=== PATIENT | female | born 1965 | race Caucasian/White ===

== ENCOUNTER 2016-12-26 14:14 | Outpatient (CLI) | payer OTHER ==
--- NOTE | 2016-12-30 07:46 | Mammography Report ---
DIGITAL BILATERAL SCREENING MAMMOGRAM: 12/26/2016 CLINICAL HISTORY: A 51-year-old female in for routine screening mammogram. Patient does have a family history of breast cancer. She has an aunt with breast cancer. Patient has no breast surgical history. TECHNIQUE: Craniocaudad and oblique lateral views of each breast were obtained with Hologic Full Field digital mammography. COMPARISON: 08/22/2007, 09/16/2008, 01/28/2010, 06/02/2011, 07/05/2012, 2013, 09/24/2015 FINDINGS: Breast parenchyma consists of extremely dense breasts. Scattered benign-appearing calcifications are noted in the breasts. There are multiple small masses noted distributed in the upper outer quadrant in 12 o' clock position of the right breast and in the central portion of the left breast. Some of these appear more prominent than on preceding exam. Recommend patient return for coned-down compression craniocaudad and oblique lateral views of the breast as well as bilateral breast ultrasound for further evaluation. IMPRESSION: MULTIPLE SMALL BILATERAL BREAST MASSES ARE NOTED IN EACH BREAST. IN THE RIGHT BREAST, THEY RESIDE IN THE UPPER OUTER QUADRANT AND IN THE 12 O' CLOCK POSITION. IN THE LEFT BREAST, THEY RESIDE IN THE CENTRAL PORTION OF THE BREAST. RECOMMEND PATIENT RETURN FOR ADDITIONAL VIEWS OF EACH BREAST AND BILATERAL BREAST ULTRASOUND FOR FURTHER EVALUATION. BIRADS CATEGORY 0 - INCOMPLETE. NEEDS ADDITIONAL IMAGING STUDIES. STANDARD QUALIFYING STATEMENTS 1. This examination was reviewed with the aid of Computer-Aided Detection (CAD). 2. A negative or benign imaging report should not delay biopsy if clinically suspicious findings are present. Consider surgical consultation if warranted. More than 5% of cancers are not identified by imaging. 3. Dense breasts may obscure an underlying neoplasm. :9 JOB #: [id number] EXT JOB #: [id number] [facility]umar
== END 2016-12-26 14:15 | disposition home or self-care (01) ==
LOC: DI.S 14:14
PROVIDERS: ATTEND Nurse Practitioner Family
DX: Z12.31 Encounter for screening mammogram for malignant neoplasm of breast (principal); R92.8 Other abnormal and inconclusive findings on diagnostic imaging of breast
CPT/HCPCS: 77067

== ENCOUNTER 2017-03-06 11:20 | Outpatient (CLI) | payer OTHER ==
--- NOTE | 2017-03-06 15:24 | Mammography Report ---
DIGITAL DIAGNOSTIC BILATERAL MAMMOGRAM: 03/06/2017 CLINICAL INDICATION: Possible bilateral nodules on screening. TECHNIQUE: Bilateral true lateral and spot compression views. COMPARISON: 12/26/2016, 09/24/2015, 07/29/2014, 07/05/2012, 06/02/2011, 01/28/2010, 09/16/2008, 08/22. FINDINGS: The breasts again demonstrate heterogeneously dense fibroglandular parenchyma bilaterally. The densities in question dissipate on additional compression. No underlying nodule or region of arc hitectural distortion is appreciated. Punctate, typically benign calcifications are again noted. IMPRESSION: BENIGN FINDINGS. RECOMMENDATION: ROUTINE ANNUAL SCREENING UNLESS OTHERWISE CLINICALLY INDICATED. BIRADS CATEGORY 2-BENIGN FINDINGS. STANDARD QUALIFYING STATEMENTS 1. This examination was reviewed with the aid of Computer-Aided Detection (CAD). 2. A negative or benign imaging report should not delay biopsy if clinically suspicious findings are present. Consider surgical consultation if warranted. More than 5% of cancers are not identified by i maging. 3. Dense breasts may obscure an underlying neoplasm. JOB #: [id number] EXT JOB #:[id number]
== END 2017-03-06 11:21 | disposition home or self-care (01) ==
LOC: DI 11:20
PROVIDERS: ATTEND Nurse Practitioner Family
DX: N63 Unspecified lump in breast (principal)
CPT/HCPCS: 77066

== ENCOUNTER 2017-03-21 17:19 | Emergency (ER) | payer OTHER ==
[2017-03-21 18:01] LABS: BASOPHILS # (AUTO) 0.1 10^3/uL (0.0-0.1); BASOPHILS % (AUTO) 0.7 %; EOSINOPHILS # (AUTO) 0.6 10^3/uL (0.0-0.7); EOSINOPHILS % (AUTO) 5.8 %; HCT - HEMATOCRIT 41.2 % (37.0-47.0); HGB - HEMOGLOBIN 13.9 g/dL (12.0-16.0); LYMPHOCYTES # (AUTO) 2.1 10^3/uL (1.5-3.5); LYMPHOCYTES % (AUTO) 18.9 %; MEAN CORPUSCULAR HEMOGLOBIN 31.3 pg (27.0-31.0); MEAN CORPUSCULAR HGB CONC 33.8 g/dL (32.0-36.0); MEAN CORPUSCULAR VOLUME 92.5 fL (81.0-99.0); MEAN PLATELET VOLUME 7.9 fL (7.9-10.8); MONOCYTES # (AUTO) 0.8 10^3/uL (0.0-1.0); MONOCYTES % (AUTO) 6.9 %; NEUTROPHILS # (AUTO) 7.5 10^3/uL (1.5-6.6); NEUTROPHILS % (AUTO) 67.7 %; RED BLOOD COUNT 4.45 10^6/uL (4.20-5.40); UNCORRECTED WHITE BLOOD COUNT 11.1 x10^3/uL; WHITE BLOOD COUNT 11.1 x10^3/uL (4.8-10.8)
[2017-03-21 18:13] LABS: ALBUMIN/GLOBULIN RATIO 1.6 (1.0-2.2); BILIRUBIN,TOTAL 0.5 mg/dL (0.2-1.0); CALCIUM 9.5 mg/dL (8.5-10.3); CREATININE 0.9 mg/dL (0.4-1.0); POTASSIUM 3.8 mmol/L (3.5-5.0); TOTAL PROTEIN 7.4 g/dL (6.7-8.2)
--- NOTE | 2017-03-21 18:27 | XRAY Preliminary Report ---
Exam: XR Chest 1 View IMPRESSION: Normal single view chest. [facility] SITE ID: [id number]
--- NOTE | 2017-03-21 18:29 | XRAY Report ---
EXAM: CHEST RADIOGRAPHY EXAM DATE: 03/21/2017 06:08 PM. CLINICAL HISTORY: CHEST PAIN. COMPARISON: None. TECHNIQUE: 1 view. FINDINGS: Lungs/Pleura: No focal opacities evident. No pleural effusion. No pneumothorax. Mediastinum: Within exam limitations, cardiomediastinal contour is normal. Other: No osseous abnormality identified. IMPRESSION: Normal single view chest. [facility] Referring Provider Line: [phone] SITE ID: [id number]
--- NOTE | 2017-03-21 18:33 | ED Physician Documentation ---
PD HPI CHEST PAIN - Stated complaint Stated Complaint: CHEST PX - Chief complaint Chief Complaint: Cardiac - History obtained from History obtained from: Patient, Family - History of Present Illness Timing - onset: Other (Previously healthy 51-year-old woman who for the past 10 days or so has a mild globalheadache. This was followed a couple of days ago by some gradual onset central chest pain that was non-positional and originally nonradiating. It was worse if she takes a deep breath. She thought it was may be reflux and tried some omeprazole without relief. Today for a couple of hours the chest pain was worse and radiated between the shoulder blades. It was not exertional, she lifted weights this morning without an increase in pain. 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 - Present Medications Home Medications: Ambulatory Orders Medication Instructions Recorded Confirmed No Known Home Medications [No 03/21/17 03/21/17 Known Home Medications] - Allergies Allergies/Adverse Reactions: Allergies Allergy/AdvReac Type Severity Reaction Status Date / Time No Known Drug Allergies Allergy Verified 03/21/17 17:28 - Social History Does the pt smoke?: Yes Smoking Status: Current some day smoker Does the pt drink ETOH?: Yes Does the pt have substance abuse?: No - Family History Family history: reports: Other (Father had uncontrolled hypertension and a stroke in his 50s) - Immunizations Immunizations are current?: Yes - POLST Patient has POLST: No PD ED PE NORMAL - Vitals Vital signs reviewed: Yes - General General: Alert and oriented X 3, No acute distress - HEENT HEENT: PERRL, EOMI - Neck Neck: Supple, no meningeal sign, No bony TTP - Cardiac Cardiac: RRR, No murmur - Respiratory Respiratory: No respiratory distress, Clear bilaterally - Abdomen Abdomen: Soft, Non tender - Extremities Extremities: No edema, No calf tenderness / cord - Neuro Neuro: Alert and oriented X 3, Normal speech - Psych Psych: Normal mood, Normal affect Results - Vitals Vitals: Vital Signs - 24 hr 03/21/17 03/21/17 17:26 19:36 Temperature 36.6 C Heart Rate 78 70 Respiratory 18 18 Rate Blood Pressure 166/103 H 138/82 H O2 Saturation 100 99 Oxygen O2 Source Room air - EKG (time done) 1732 Rate: Rate (enter#) (69) Rhythm: NSR [place]: Normal Intervals: Normal [place] QRS: Normal Ischemia: Normal ST segments Computer interpretation: Agree with computer - Labs Labs: Laboratory Tests 03/21/17 03/21/17 03/21/17 17:55 17:55 17:55 WBC 11.1 H RBC 4.45 Hgb 13.9 Hct 41.2 MCV 92.5 MCH 31.3 H MCHC 33.8 RDW 13.0 Plt Count 318 MPV 7.9 Neut # 7.5 H Lymph # 2.1 [place] # 0.8 Eos # 0.6 Baso # 0.1 Absolute Nucleated RBC 0.01 Nucleated RBCs 0.0 Sodium 136 Potassium 3.8 Chloride 100 L Carbon Dioxide 27 Anion Gap 9.0 BUN 24 H Creatinine 0.9 Estimated GFR (MDRD) 66 L Glucose 105 H Calcium 9.5 Total Bilirubin 0.5 AST 19 ALT 33 Alkaline Phosphatase 52 Troponin I < 0.04 Total Protein 7.4 Albumin 4.6 Globulin 2.8 Albumin/Globulin Ratio 1.6 Lipase 24 - Rads (name of study) 1v chest Radiology: EMP read contemporaneously (NAD) Ct Angio chest Radiology: EMP read contemporaneously (neg) PD MEDICAL DECISION MAKING - ED course ED course: 51-year-old woman with chest pain, long-standing duration so the single negative troponin should be predictive especially in light of a completely nonischemic EKG. Pain did radiate between the shoulder blades a dissection was considered and ruled out by CT. Departure - Departure Disposition: 01 Home, Self Care Clinical Impression: Chest pain Qualifiers: Chest pain type: unspecified Qualified Code(s): R07.9 - Chest pain, unspecified Condition: Good Record reviewed to determine appropriate education?: Yes Instructions: ED Chest Pain NonCardiac Comments: Call your doctor to arrange a follow-up appointment, make the next available appointment. In the interim, return anytime if worse or if new symptoms develop. Your blood pressure was elevated today on check into the emergency department. This does not mean that you have hypertension, it is a common phenomenon to come to the emergency department and have elevated blood pressure. I recommend that she see her primary care physician within the week to have it rechecked when you are feeling better. Discharge Date/Time: 03/21/17 20:35
[2017-03-21] MEDS ORDERED: SODIUM CHLORIDE FLUSH 0.9% 10 ML SYRINGE IVP ONE (18:52)
[2017-03-21] MEDS ORDERED: IOPAMIDOL-300 100 ML VIAL IVP ONE (19:27)
[2017-03-21 19:36] VITALS: BP 138/82
--- NOTE | 2017-03-21 20:05 | CT Preliminary Report ---
Exam: CT Chest Angio (AORTA) IMPRESSION: 1. No thoracic aortic aneurysm or dissection. 2. Negative for pulmonary embolism. 3. Clear lungs. [facility] SITE ID: [id number]
--- NOTE | 2017-03-21 20:08 | CT Report ---
EXAM: CT ANGIOGRAM CHEST EXAM DATE: 03/21/2017 07:33 PM. CLINICAL HISTORY: Chest pain. COMPARISON: None. TECHNIQUE: Routine helical imaging was performed through the chest in the arterial phase. IV Contras t: 100 cc Isovue-300. Reconstructions: Coronal 3-D MIP reconstructions.Sagittal and coronal. In accordance with CT protocol optimization, one or more of the following dose reduction techniques w ere utilized for this exam: automated exposure control, adjustment of mA and/or KV based on patient s ize, or use of iterative reconstructive technique. FINDINGS: Pulmonary Arteries: Diagnostic quality: Adequate through the segmental arteries. No evidence for acute or chronic pulmona ry emboli. Thoracic aorta is normal in caliber. No dissection or intramural hematoma. There is negligible athero sclerotic calcified plaque. Lungs/Pleura: There is mild bilateral apical subpleural scarring. No consolidative process. Negative for pulmonary edema and pneumothorax. No pleural effusion. Mediastinum: Normal. No cardiac enlargement or adenopathy. Thoracic Aorta: Unremarkable. Upper Abdomen: Unremarkable. Other: None. IMPRESSION: 1. No thoracic aortic aneurysm or dissection. 2. Negative for pulmonary embolism. 3. Clear lungs. [facility] Referring Provider Line: [phone] SITE ID: [id number]
== END 2017-03-21 20:35 | disposition home or self-care (01) ==
LOC: ED 17:19
DX: R07.9 Chest pain, unspecified (principal); R03.0 Elevated blood-pressure reading, without diagnosis of hypertension; F17.200 Nicotine dependence, unspecified, uncomplicated; Z82.3 Family history of stroke; Z82.49 Family history of ischemic heart disease and other diseases of the circulatory system
CPT/HCPCS: 36415; 71010; 71275; 80053; 83690; 84484; 85025; 93005; 99283; 99284; Q9967

== ENCOUNTER 2017-09-27 13:51 | Outpatient (CLI) | payer OTHER ==
--- NOTE | 2017-09-27 16:27 | XRAY Report ---
THREE VIEW LUMBAR SPINE: 09/27/2017 CLINICAL INDICATION: Back pain. FINDINGS: AP, lateral, coned down views of the lumbar spine demonstrate normal height and alignment of the vertebral bodies. The disk spaces are preserved. Minimal degenerative endplate changes previously noted are stable. No interval fracture or subluxation is seen. The bowel gas pattern is normal. IMPRESSION: MINIMAL DEGENERATIVE ENDPLATE CHANGES, STABLE FROM PREVIOUS. TD: 09/27/2017 16:25
== END 2017-09-27 13:52 | disposition home or self-care (01) ==
LOC: DI.S 13:51
PROVIDERS: ATTEND Nurse Practitioner Family
DX: M54.41 Lumbago with sciatica, right side (principal); M51.36 Other intervertebral disc degeneration, lumbar region
CPT/HCPCS: 72100

== ENCOUNTER 2017-09-29 04:57 | Emergency (ER) | payer OTHER ==
--- NOTE | 2017-09-29 05:23 | ED Physician Documentation ---
PD HPI BACK PAIN - Stated complaint Stated Complaint: BACK PX - Chief complaint Chief Complaint: Back Pain - History obtained from History obtained from: Patient - History of Present Illness Timing - onset: How many weeks ago (2) Timing - details: Gradual onset, Constant, Waxing and waning Pain level max: 10 Pain level now: 10 Location: Lower, Left Quality: Pain, Spasm Associated symptoms: Numbness (LLE). No: Fever, Weakness, Incontinent of urine , Unable to urinate, Incontinent of stool Improves with: Rest Worsened by: Movement Similar symptoms before: No diagnosis Recently seen: Clinic - Additional information Additional information: c/o atraumatic left low back pain x 2 weeks, gradually progressive and radiating down left leg to knee anterior surface associated with intermittent paresthesias of LLE. Evaluated by PMD twice over past two weeks, xrays performed few days ago were nondiagnostic. Presents due to inadequate relief with 5 days 60mg prednisone (finished yesterday), meloxicam, flexeril, vicodin, and amitryptilene. She did have moderate amount of activity the day the pain started (exercise with weights, then lifting heavy objects), although there was no specific incident that triggered back pain. Review of Systems GI: reports: Reviewed and negative Musculoskeletal: reports: Back pain. denies: Neck pain Neurologic: reports: Numbness. 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 - Present Medications Home Medications: Ambulatory Orders Medication Instructions Recorded Confirmed Amitriptyline [Elavil] 1 tab PO BID 09/29/17 09/29/17 Cyclobenzaprine HCl 1 tab PO TID 09/29/17 09/29/17 Hydrocodone/Acetaminophen [Vicodin 1 tab PO QPM 09/29/17 09/29/17 5-300 mg Tablet] diazePAM [Valium] 5 mg PO TID PRN #15 tablet 09/29/17 - Allergies Allergies/Adverse Reactions: Allergies Allergy/AdvReac Type Severity Reaction Status Date / Time No Known Drug Allergies Allergy Verified 09/29/17 05:02 - Social History Does the pt smoke?: Yes Smoking Status: Current every day smoker Does the pt drink ETOH?: Yes Does the pt have substance abuse?: No - Immunizations Immunizations are current?: Yes - POLST Patient has POLST: No PD ED PE NORMAL - Vitals Vital signs reviewed: Yes - General General: Alert and oriented X 3, Well developed/nourished, Other (appears to be in moderate painful distress) - Cardiac Cardiac: RRR, No murmur - Respiratory Respiratory: No respiratory distress, Clear bilaterally - Abdomen Abdomen: Soft, Non tender - Back Back: No CVA TTP, No spinal TTP - Derm Derm: Normal color, Warm and dry, No rash - Extremities Extremities: No edema - Neuro Neuro: Alert and oriented X 3, cattle dipper 2-12 intact, No motor deficit, No sensory deficit, Other (2+/4 bilateral DTR (patellar). LTS intact BLE. 5/5 bilateral plantarflexion. unable to assess straight-leg lift/strength due to worsening pain with this maneuver) Results - Vitals Vitals: Vital Signs - 24 hr 09/29/17 09/29/17 09/29/17 05:02 06:13 06:41 Temperature 36.7 C Heart Rate 80 76 77 Respiratory 20 16 16 Rate Blood Pressure 178/111 H 158/98 H 170/108 H O2 Saturation 100 98 94 Oxygen O2 Source Room air PD MEDICAL DECISION MAKING - ED course Complexity details: considered differential, d/w patient ED course: good relief with IV dilaudid and PO valium, although pain gradually returned while awaiting MRI. She requested PO medication and thus 2 percocet given. However, while on MRI table, she had worsening pain again and thus given another dose (1mg) of IV dilaudid. Case then signed out to Ignacio Kitchen, as my shift ended prior to MRI results available. Signed out at approximately 8 AM Departure - Departure Disposition: 01 Home, Self Care Clinical Impression: Low back pain Condition: Stable Instructions: ED Sciatica Follow-Up: Jorge Meek ARNP [Credentialed Staff Provider] - Prescriptions: diazePAM [Valium] 5 mg PO TID PRN #15 tablet PRN Reason: Spasms Comments: Apply ice pack to your lower back intermittently for the next 3 or 4 days. You can use Valium as prescribed if needed for muscle spasms. You can use pain medication as previously prescribed if needed for pain. Follow up with your primary physician within 1 week. Call to schedule appointment. Return to the emergency department if you develop increasing pain, increasing numbness or weakness, or otherwise worsening symptoms. Discharge Date/Time: 09/29/17 10:41
[2017-09-29] MEDS ORDERED: HYDROmorphone 1 MG/ML SYRINGE IVP STA ×2 (05:51→08:49)
[2017-09-29] MEDS ORDERED: diazePAM 5 MG TABLET PO STA (05:51)
[2017-09-29 06:43] VITALS: BP 170/108
[2017-09-29] MEDS ORDERED: oxyCOD/ACETAMIN 5 MG/325 MG TABLET PO STA (07:51)
--- NOTE | 2017-09-29 09:56 | MRI Preliminary Report ---
Exam: MRI LUMBAR SPINE W/O Impression: 1. There is mild bilateral foraminal space protrusions of the disk producing mild foraminal stenoses at L3-L4. There is no significant central canal stenosis at L3-L4. 2. There is a minimal disk bulge at L4-L5 producing a mild central canal stenosis. 3. 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 Comment: The following findings are so common in adults without low back pain that while we report th eir presence, they must be interpreted with caution and in the context of the clinical situation. (Re marbella Cannon et al, Spine 2001) Prevalence of findings in patients without low back pain: Disk degeneration (any evidence): 92% Disk desiccation/T2 signal loss: 83% Disk height loss: 56% Disk bulge: 64% Disk protrusion: 32% Annular tear/high intensity zone: 38% [facility] SITE ID: [id number]
--- NOTE | 2017-09-29 10:12 | MRI Report ---
EXAM: MRI LUMBAR SPINE WITHOUT CONTRAST EXAM DATE: 09/29/2017 09:15 AM. CLINICAL HISTORY: Low back pain radiating to the left leg for 2 weeks. COMPARISON: None. TECHNIQUE: Multiplanar, multisequence T1-weighted and fluid-sensitive sequences of the lumbar spine f rom T12 to S1 without contrast. Other: None. FINDINGS: There is a mild degree of straightening of the normal lumbar lordosis. There is normal height of the disk spaces. There is minimal desiccation at L2-L3 through L3-L4. The conus terminates at L1-L2 and is normal. There is no significant atrophy of the paraspinal musculature or the psoas musculature. The kidneys a re without evidence of hydronephrosis. The abdominal aorta is of normal caliber. The anterior to posterior dimension of the bony lumbar canal is less than 15 mm consistent with a con genital stenosis. There is fluid intensity within the superficial space of the lower back. L2-L3: There is no significant disk bulge, central or foraminal stenosis. The facets are normal. L3-L4: There are small foraminal space protrusions of the disk producing mild foraminal stenoses. The re is no significant disk bulge or central canal stenosis. The facets are normal. L4-L5: There is a minimal disk bulge producing a mild central canal stenosis. There is mild right and left facet arthropathy. There is mild right and left foraminal stenosis. L5-S1: There is no significant disk bulge, central or foraminal stenosis. The facets are normal. IMPRESSION: 1. There are mild bilateral foraminal space protrusions of the disk producing mild foraminal stenoses at L3-L4. There is no significant central canal stenosis at L3-L4. 2. There is a minimal disk bulge at L4-L5 producing a mild central canal stenosis. 3. 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 Comment: The following findings are so common in adults without low back pain that while we report th eir presence, they must be interpreted with caution and in the context of the clinical situation. (Re marbella Cannon et al, Spine 2001) Prevalence of findings in patients without low back pain: Disk degeneration (any evidence): 92% Disk desiccation/T2 signal loss: 83% Disk height loss: 56% Disk bulge: 64% Disk protrusion: 32% Annular tear/high intensity zone: 38% [facility] Referring Provider Line: [phone] SITE ID: [id number]
--- NOTE | 2017-09-29 10:24 | ED Physician Documentation ---
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 - Present Medications Home Medications: Ambulatory Orders Medication Instructions Recorded Confirmed Amitriptyline [Elavil] 1 tab PO BID 09/29/17 09/29/17 Cyclobenzaprine HCl 1 tab PO TID 09/29/17 09/29/17 Hydrocodone/Acetaminophen [Vicodin 1 tab PO QPM 09/29/17 09/29/17 5-300 mg Tablet] diazePAM [Valium] 5 mg PO TID PRN #15 tablet 09/29/17 - Allergies Allergies/Adverse Reactions: Allergies Allergy/AdvReac Type Severity Reaction Status Date / Time No Known Drug Allergies Allergy Verified 09/29/17 05:02 - Social History Does the pt smoke?: Yes Smoking Status: Current every day smoker Does the pt drink ETOH?: Yes Does the pt have substance abuse?: No - Immunizations Immunizations are current?: Yes - POLST Patient has POLST: No Results - Vitals Vitals: Oxygen O2 Source Room air - Rads (name of study) MRI Lumbar Spine Radiology: Prelim report reviewed, EMP read contemporaneously, See rad report ( There are mild bilateral foraminal space protrusions of the disc producing mild foraminal stenosis at L3-L4. There is no significant central canal stenosis at L3-L4. There is a mild disc bulge at L4-L5 producing a mild central canal stenosis. 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 The MRI reveals mild foraminal stenosis at the levels of L3-4 and L4-5. On reevaluation of the patient, her pain has resolved after administration of pain medication as ordered by Dr. Jimenez. Straight leg raise test is negative bilaterally. I discussed with her the results of the MRI, symptomatic treatment and outpatient follow-up, as well as potentially worrisome signs or symptoms that should prompt reevaluation in the emergency department. Departure - Departure Disposition: 01 Home, Self Care Clinical Impression: Low back pain Qualifiers: Chronicity: acute Back pain laterality: left Sciatica presence: with sciatica Sciatica laterality: sciatica of left side Qualified Code(s): M54.42 - Lumbago with sciatica, left side Condition: Stable Instructions: ED Sciatica Follow-Up: Jorge Meek ARNP [Credentialed Staff Provider] - Prescriptions: diazePAM [Valium] 5 mg PO TID PRN #15 tablet PRN Reason: Spasms Comments: Apply ice pack to your lower back intermittently for the next 3 or 4 days. You can use Valium as prescribed if needed for muscle spasms. You can use pain medication as previously prescribed if needed for pain. Follow up with your primary physician within 1 week. Call to schedule appointment. Return to the emergency department if you develop increasing pain, increasing numbness or weakness, or otherwise worsening symptoms. Discharge Date/Time: 09/29/17 10:41
== END 2017-09-29 10:41 | disposition home or self-care (01) ==
LOC: ED 04:57
DX: M54.42 Lumbago with sciatica, left side (principal); F17.200 Nicotine dependence, unspecified, uncomplicated
CPT/HCPCS: 72148; 96374; 96376; 99283; 99284; A9270; J1170

== ENCOUNTER 2019-06-10 11:06 | Outpatient (CLI) | payer OTHER ==
[2019-06-10 18:44] LABS: THYROID STIMULATING HORMONE 3.62 uIU/mL (0.34-5.60)
[2019-06-10 18:46] LABS: FREE T4 (FREE THYROXINE) 0.57 ng/dL (0.58-1.64)
[2019-06-10 19:11] LABS: FOLLICLE STIMULATING HORMONE 49.95 mIU/mL
== END 2019-06-10 11:07 | disposition home or self-care (01) ==
LOC: LAB.S 11:06
PROVIDERS: ATTEND Nurse Practitioner Family
DX: R53.82 Chronic fatigue, unspecified (principal)
CPT/HCPCS: 36415; 83001; 84439; 84443; 84481; 86376; 86800

== ENCOUNTER 2020-09-07 08:00 | Outpatient (CLI) | payer OTHER ==
[2020-09-07 16:05] LABS: C. PNEUMONIAE- RESP PCR PANEL NOT DETECTED
== END 2020-09-07 23:59 | disposition home or self-care (01) ==
LOC: LAB 08:00
PROVIDERS: ATTEND Pediatrics
DX: Z20.822 Contact with and (suspected) exposure to COVID-19 (principal)
CPT/HCPCS: 0202U

== ENCOUNTER 2020-09-28 10:54 | Outpatient (CLI) | payer OTHER ==
--- NOTE | 2020-09-29 12:30 | Mammography Report ---
BILATERAL DIGITAL SCREENING MAMMOGRAM 3D/2D WITH EXAGGERATED CC: 09/28/2020 CLINICAL: Routine screening. Comparison is made to exams dated: 03/06/2017 mammogram, 12/26/2016 mammogram, 09/24/2015 mammogram, mammogram, and 07/05/2012 mammogram - [facility]. There are scattered fib roglandular elements in both breasts. No significant masses, calcifications, or other findings are seen in either breast. There has been no significant interval change. IMPRESSION: NEGATIVE There is no mammographic evidence of malignancy. A 1 year screening mammogram is recommended. This exam was interpreted at Station ID: [id number]. NOTE: For mammograms, a report in lay terms will be sent to the patient. Approximately 15% of breast malignancies will not be visualized mammographically. In the management of a palpable breast mass, a negative mammogram must not discourage biopsy of a clinically suspicious lesion. Electronically Signed By: Aaron Adrian M.D., jr/sonam:09/28/2020 11:30:26 ACR BI-RADS Category 1: Negative 3341F PARENCHYMAL PATTERN: (A) - The breast(s) demonstrate(s) scattered fibroglandular densities. BI-RADS CATEGORY: (1) - 1 RECOMMENDATION: (ANNUAL) - Recommend routine annual screening mammography. [id number] 1 year screening LATERALITY: (B)
== END 2020-09-28 10:55 | disposition home or self-care (01) ==
LOC: DI.S 10:54
PROVIDERS: ATTEND Nurse Practitioner Family
DX: Z12.31 Encounter for screening mammogram for malignant neoplasm of breast (principal)

== ENCOUNTER 2024-03-27 15:45 | Outpatient (CLI) | payer OTHER ==
--- NOTE | 2024-03-28 13:00 | XRAY Report ---
PROCEDURE: Ankle 3+V LT INDICATIONS: LT ANKLE PAIN TECHNIQUE: 3 views of the ankle were acquired. COMPARISON: None. FINDINGS: Bones: Small ossification is seen adjacent to the distal fibular tip with age-indeterminate avulsion fracture. Mortise joint is normally aligned. No additional osseous abnormality is seen. Soft tissues: Soft tissue edema seen surrounding the ankle most prominent over the lateral malleolus. IMPRESSION: Small ossification adjacent to the fibular tip is suggestive of a small avulsion fracture of uncertai n age. Recommend correlation for point tenderness. Reviewed by: Swapnil Del Valle MD on 03/28/2024 12:58 PM PDT Approved by: Swapnil Del Valle MD on 03/28/2024 12:58 PM PDT Station ID: [id number]
== END 2024-03-27 15:46 | disposition home or self-care (01) ==
LOC: DI.S 15:45
PROVIDERS: ATTEND Nurse Practitioner Family
DX: M25.572 Pain in left ankle and joints of left foot (principal); R93.6 Abnormal findings on diagnostic imaging of limbs

== ENCOUNTER 2024-05-01 08:01 | Outpatient (CLI) | payer OTHER ==
--- NOTE | 2024-05-02 10:48 | Mammography Report ---
BILATERAL DIGITAL SCREENING MAMMOGRAM 3D/2D WITH EXAGGERATED CC: 05/01/2024 CLINICAL: Routine screening. Family history of breast cancer. Comparison is made to exams dated: 12/16/2022 mammogram, 09/28/2020 mammogram, and 03/06/2017 mammogram - [facility]. The breasts are heterogeneously dense, which may obscure small masses (category c / 51-75% glandular tissue). No significant masses, calcifications, or other findings are seen in either breast. There has been no significant interval change. IMPRESSION: NEGATIVE There is no mammographic evidence of malignancy. A 1 year screening mammogram is recommended. Based on the Tyrer Cuzick model (a risk assessment model) the patient's lifetime risk is 13.5% and he r 10 year risk is 5.3%. According to the ACR, ACS, and NCCN guidelines, an annual breast MRI exam dilshad ng with mammogram is recommended if the patient's lifetime risk is 20% or greater. This exam was interpreted at Station ID: [id number]. NOTE: For mammograms, a report in lay terms will be sent to the patient. Approximately 15% of breast malignancies will not be visualized mammographically. In the management of a palpable breast mass, a negative mammogram must not discourage biopsy of a clinically suspicious lesion. Electronically Signed By: Radu hudson/sonam:05/01/2024 11:13:46 letter sent: No_Letter ACR BI-RADS Category 1: Negative PARENCHYMAL PATTERN: (D) - The breast(s) demonstrate(s) heterogeneously dense fibroglandular gildardo anne. BI-RADS CATEGORY: (1) - 1 RECOMMENDATION: (ANNUAL) - Recommend routine annual screening mammography. [id number] 1 year screening LATERALITY: (B)
== END 2024-05-01 08:02 | disposition home or self-care (01) ==
LOC: DI.S 08:01
PROVIDERS: ATTEND Nurse Practitioner Family
DX: Z12.31 Encounter for screening mammogram for malignant neoplasm of breast (principal); R92.333 Mammographic heterogeneous density, bilateral breasts; Z80.3 Family history of malignant neoplasm of breast